=== PATIENT | male | born 1980 | race Caucasian/White ===

== ENCOUNTER → 2018-05-22 | Outpatient (CLI) | payer OTHER ==
[~2018-05-22] MED LIST: 'PARAFON FORTE500 M1 PO; ANAPROX DS550 MG PO; CLINDAMYCIN HC300 MG PO; DILANTIN100 MG PO; KEFLEX500 MG PO; MOTRIN800 MG PO; PERCOCET 325 MG1 TA2 PO
== END | disposition home or self-care (01) ==
LOC: RESCLI 02:11
DX: I10 Essential (primary) hypertension (principal); G40.409 Other generalized epilepsy and epileptic syndromes, not intractable, without status epilepticus; B18.2 Chronic viral hepatitis C; E66.3 Overweight; Z87.898 Personal history of other specified conditions; Z76.89 Persons encountering health services in other specified circumstances; Z91.89 Other specified personal risk factors, not elsewhere classified; Z79.899 Other long term (current) drug therapy; Z88.8 Allergy status to other drugs, medicaments and biological substances

== ENCOUNTER 2018-07-13 09:40 | Emergency (ER) | payer OTHER ==
[~2018-07-13] VITALS: Wt 102.1 kg
[~2018-07-13 09:40] MED LIST changes: -DILANTIN100 MG PO
[2018-07-13] MEDS ORDERED: DILANTIN100 MG PO (09:48)
[2018-07-13 09:52] VITALS: BP 151/97
== END 2018-07-13 11:33 | disposition home or self-care (01) ==
LOC: ED 09:40
DX: S62.396A Other fracture of fifth metacarpal bone, right hand, initial encounter for closed fracture (principal); F17.200 Nicotine dependence, unspecified, uncomplicated; Z88.8 Allergy status to other drugs, medicaments and biological substances; W19.XXXA Unspecified fall, initial encounter; Y93.89 Activity, other specified; Y92.89 Other specified places as the place of occurrence of the external cause; Y99.8 Other external cause status

== ENCOUNTER 2018-10-31 16:15 | Emergency (ER) | payer OTHER ==
[~2018-10-31] VITALS: Ht 193 cm; Wt 108.9 kg
[~2018-10-31 16:15] MED LIST changes: +DILANTIN100 MG PO
[2018-10-31 16:17] VITALS: BP 133/90
[2018-10-31] MEDS ORDERED: CEPHALEXIN500 M1 PO (16:58)
== END 2018-10-31 18:50 | disposition home or self-care (01) ==
LOC: ED 16:15
DX: S92.321A Displaced fracture of second metatarsal bone, right foot, initial encounter for closed fracture (principal); S92.331A Displaced fracture of third metatarsal bone, right foot, initial encounter for closed fracture; Z88.8 Allergy status to other drugs, medicaments and biological substances; Z79.899 Other long term (current) drug therapy; Z90.49 Acquired absence of other specified parts of digestive tract; W22.8XXA Striking against or struck by other objects, initial encounter; Y93.H2 Activity, gardening and landscaping; Y92.096 Garden or yard of other non-institutional residence as the place of occurrence of the external cause; Y99.8 Other external cause status

== ENCOUNTER 2022-12-14 12:29 | Emergency (ER) | payer OTHER ==
[~2022-12-14] VITALS: Ht 195.5 cm; Wt 93.0 kg
[~2022-12-14 12:29] MED LIST changes: +CEPHALEXIN500 M1 PO
[2022-12-14 12:43] VITALS: BP 140/110
== END 2022-12-14 15:49 | disposition home or self-care (01) ==
LOC: ED 12:29
DX: S90.122A Contusion of left lesser toe(s) without damage to nail, initial encounter (principal); F31.9 Bipolar disorder, unspecified; I10 Essential (primary) hypertension; F12.10 Cannabis abuse, uncomplicated; F10.10 Alcohol abuse, uncomplicated; Z88.8 Allergy status to other drugs, medicaments and biological substances; Z90.49 Acquired absence of other specified parts of digestive tract; Z98.890 Other specified postprocedural states; Z87.891 Personal history of nicotine dependence; W20.8XXA Other cause of strike by thrown, projected or falling object, initial encounter; Y93.89 Activity, other specified; Y92.89 Other specified places as the place of occurrence of the external cause; Y99.8 Other external cause status

== ENCOUNTER 2023-03-15 21:38 | Inpatient (IN) | payer OTHER ==
[~2023-03-15] VITALS: Ht 195.5 cm; Wt 90.7 kg
[2023-03-15 21:50] VITALS: BP 116/80
[2023-03-15 22:19] LABS: BASO # 0.1 10*3/uL (0.0-0.1); BASO % 1.4 % (0.0-1.0); EOS # 0.1 10*3/uL (0.0-0.4); EOS % 0.7 % (1.0-4.0); HEMATOCRIT 42.3 % (42.0-52.0); LYMPH # 1.8 10*3/uL (1.3-4.4); LYMPH % 19.5 % (27.0-41.0); MEAN CELL VOLUME 97.7 fl (80.0-94.0); MEAN CORPUSCULAR HGB 34.2 pg (27.0-31.0); MONO # 1.3 10*3/uL (0.1-1.0); MONO % 14.6 % (3.0-9.0); NEUT # 5.7 10*3/uL (2.3-7.9); NEUT % 63.4 % (47.0-73.0); PLATELET COUNT AUTOMATED 238 10*3/uL (130-400); RED BLOOD COUNT 4.33 10*6/uL (4.50-5.90)
[2023-03-15 22:42] LABS: ALKALINE PHOSPHATASE 59 U/L (46-116); BUN 6 mg/dl (9-23); CHLORIDE 99 mmol/L (98-107); POTASSIUM 3.7 mmol/L (3.4-5.1); SGPT/ALT 62 U/L (10-49); TOTAL PROTEIN 7.7 gm/dL (6.0-8.0)
[2023-03-16 03:04] VITALS: BP 109/74; BP 130/51
[2023-03-16 04:10] VITALS: BP 147/90
[2023-03-16 06:10] LABS: BASO # 0.1 10*3/uL (0.0-0.1); BASO % 1.6 % (0.0-1.0); EOS # 0.2 10*3/uL (0.0-0.4); HEMATOCRIT 39.2 % (42.0-52.0); LYMPH % 12.7 % (27.0-41.0); MEAN CELL VOLUME 97.3 fl (80.0-94.0); MEAN CORPUSCULAR HGB CONC 34.9 g/dl (33.0-37.0); MEAN PLATELET VOLUME 10.3 fl (9.6-12.3); MONO # 1.1 10*3/uL (0.1-1.0); MONO % 13.4 % (3.0-9.0); NEUT # 5.6 10*3/uL (2.3-7.9); PLATELET COUNT AUTOMATED 211 10*3/uL (130-400); RED BLOOD COUNT 4.03 10*6/uL (4.50-5.90); RED CELL DISTRI WIDTH 14.1 % (0-14.5); WHITE BLOOD COUNT 7.9 10*3/uL (4.8-10.8)
[2023-03-16 06:50] LABS: ALKALINE PHOSPHATASE 51 U/L (46-116); CHLORIDE 104 mmol/L (98-107); CHOLESTEROL 151 mg/dL (<200); LDL CHOLESTEROL 53 mg/dL (9-159); SGPT/ALT 57 U/L (10-49); TOTAL PROTEIN 6.6 gm/dL (6.0-8.0); TRIGLYCERIDES 27 mg/dl (<150)
[2023-03-16 06:53] LABS: BUN < 5 mg/dl (9-23)
[2023-03-16 07:01] LABS: VITAMIN D, 25-HYDROXY 17.7 ng/mL (30-100)
[2023-03-16 08:00] VITALS: BP 146/77
[2023-03-16 12:00] VITALS: BP 120/77
[2023-03-16 16:00] VITALS: BP 135/70
[2023-03-17] VITALS: BP 138/92
[2023-03-17 07:04] LABS: BASO # 0.1 10*3/uL (0.0-0.1); BASO % 1.9 % (0.0-1.0); EOS # 0.3 10*3/uL (0.0-0.4); EOS % 3.6 % (1.0-4.0); LYMPH % 14.4 % (27.0-41.0); MEAN CORPUSCULAR HGB 33.8 pg (27.0-31.0); MEAN CORPUSCULAR HGB CONC 34.1 g/dl (33.0-37.0); MONO # 1.2 10*3/uL (0.1-1.0); NEUT # 4.6 10*3/uL (2.3-7.9); PLATELET COUNT AUTOMATED 203 10*3/uL (130-400); RED BLOOD COUNT 4.14 10*6/uL (4.50-5.90); RED CELL DISTRI WIDTH 13.9 % (0-14.5); WHITE BLOOD COUNT 7.2 10*3/uL (4.8-10.8)
[2023-03-17 07:32] LABS: ALKALINE PHOSPHATASE 55 U/L (46-116); BUN 7 mg/dl (9-23); CHLORIDE 105 mmol/L (98-107); POTASSIUM 3.6 mmol/L (3.4-5.1); SGPT/ALT 58 U/L (10-49); TOTAL PROTEIN 6.4 gm/dL (6.0-8.0)
[2023-03-17 07:38] VITALS: BP 150/110
== END 2023-03-17 09:29 | disposition left against medical advice (07) | DRG 770 ==
LOC: ED 21:38 → 4E 03-16 02:20 → EDHOLD 03-16 02:20 → 4E 03-16 03:30
PROVIDERS: Internal Medicine; Student in an Organized Health Care Education/Training Program; ADMIT Emergency Medicine; ATTEND Emergency Medicine
DX: F10.939 Alcohol use, unspecified with withdrawal, unspecified (principal); E87.1 Hypo-osmolality and hyponatremia; E83.42 Hypomagnesemia; R74.01 Elevation of levels of liver transaminase levels; G40.909 Epilepsy, unspecified, not intractable, without status epilepticus; D53.9 Nutritional anemia, unspecified; Z53.29 Procedure and treatment not carried out because of patient's decision for other reasons; Z90.49 Acquired absence of other specified parts of digestive tract; Z88.8 Allergy status to other drugs, medicaments and biological substances

== ENCOUNTER 2025-07-10 10:30 | Emergency (ER) | payer OTHER ==
[~2025-07-10] VITALS: Ht 195.5 cm; Wt 99.8 kg
[2025-07-10 10:39] VITALS: BP 112/87
[2025-07-10] MEDS ORDERED: PREDNISONE20 M1 PO (11:44)
[2025-07-10] MEDS ORDERED: MELOXICAM10 MG PO (11:44)
[2025-07-10] MEDS ORDERED: MELOXICAM7.5 MG PO (12:01)
== END 2025-07-10 11:52 | disposition home or self-care (01) ==
LOC: ED 10:30
DX: M54.32 Sciatica, left side (principal); M54.9 Dorsalgia, unspecified; M79.662 Pain in left lower leg; I10 Essential (primary) hypertension; F31.9 Bipolar disorder, unspecified; G40.909 Epilepsy, unspecified, not intractable, without status epilepticus; F17.200 Nicotine dependence, unspecified, uncomplicated; Z90.49 Acquired absence of other specified parts of digestive tract; Z88.8 Allergy status to other drugs, medicaments and biological substances